=== PATIENT | female | born 1945 | race Hispanic/Latino ===

== ENCOUNTER → 2020-09-19 | Outpatient (CLI) | payer MEDICARE ==
[~2020-09-19] MED LIST: FENTANYL CITRATE/PF 100MCG/2 ML INJ ONE; MIDAZOLAM HCL 2 MG/2 ML VIAL ONE
[2020-09-19 08:18] LABS: HEMOGLOBIN 12.9 g/dL (12.0-16.0)
[2020-09-19 08:49] LABS: INR 0.96; PROTHROMBIN TIME 13.3 seconds (11.9-14.5)
[2020-09-19 08:50] LABS: PARTIAL THROMBOPLASTIN TIME 31.6 seconds (23.8-35.5)
== END ==
LOC: US 07:51
PROVIDERS: ATTEND Internal Medicine Gastroenterology
DX: R16.0 Hepatomegaly, not elsewhere classified (principal)
CPT/HCPCS: 36415; 74470; 85014; 85049; 85610; 85730; U0002; J2250; J3010